=== PATIENT | female | born 1980 | race African-American/Black ===

== ENCOUNTER 2017-08-21 12:41 | Emergency (ER) | payer MEDICAID, SELFPAY ==
[2017-08-21 12:43] VITALS: BP 137/91; PULSE 71; RESP 16; TEMP 37; O2SAT 100; BMI 44.2
--- NOTE | 2017-08-21 13:12 | ED.DCSUM_ITS ---
- ER Visit Summary Date of Service: 08/21/17 Chief Complaint: Right flank pain History of Present Illness: The patient is a 37 F with waxing and waning right flank pain for the past week. She states she did have one episode of vomiting last week. No diarrhea. She denies urinary symptoms. She initially thought was secondary to uterine cramping. She had uterine ablation in the past but states she still gets cramps monthly. Physical Examination: Vital signs are unremarkable. Patient sitting upright in bed no acute distress. She is nontoxic appearing. Head and neck examination unremarkable. Heart is regular rate and rhythm. Lung sounds are clear. Abdomen is soft with no reproducible tenderness. Hypoactive bowel sounds noted throughout. Back examination reveals no true CVA tenderness. Test Results: CBC and chemistry studies are unremarkable. Urinalysis shows 15 ketones but no blood or infection. CT flank shows mild to moderate constipation. There is no evidence of appendicitis. There is a 3.7 mm lower pole renal stone on the right. Emergency Department Course and Treatment: Patient did take ibuprofen couple hours prior to arrival. After finding a ride home she was given dose of morphine and Zofran along with IV fluids. Test results were discussed with the patient. She will be started on MiraLAX. Treatment Plan: [] Disposition: Discharge Impression: 1. Right flank pain 2. Constipation This note was generated with [employer] dictation software. It may contain incorrect words, spelling, and punctuation that were not noted in review of the chart prior to signing ED Disposition - Plan for ED Patient: Chief Complaint: Flank Pain Referrals: [facility] Doctor,Out of [NON-STAFF] -
[2017-08-21] MEDS: 0.9% Normal Saline 1,000 ML 150 ML IV (13:19)
[2017-08-21 13:27] LABS: Mucous, Urine 0 SEEN /hpf (<or=2+); Squamous Epithelial Cells - UA 0 SEEN /hpf (5-10); White Blood Cells 0 SEEN /hpf (0-5)
[2017-08-21 13:30] LABS: Absolute Lymphocyte Count 1.97 X10^3/ul (0.83-4.51); Absolute Neutrophil Count 2.5 X10^3/uL (2.0-7.7); Basophil# 0.02 X10^3/uL; Basophil% 0.4 % (0-1); Eosinophil# 0.09 X10^3/uL; Eosinophils% 1.8 % (0-5); Hematocrit 41.4 % (37-47); Hemoglobin 13.9 g/dl (12.0-15.0); Lymphocyte # 1.97 X10^3/ul (4.0); Lymphocyte % 39.2 % (19-41); Mean Corp Hgb Conc 33.6 g/gl (32-36); Mean Corpuscular Hgb 29.3 pg (27.0-32.0); Mean Corpuscular Volume 87.3 fL (81-99); Mean Platelet Vol. 10.2 fl (6.2-12.0); Monocyte# 0.42 X10^3/uL; Monocyte% 8.3 % (0-10); Neutrophil # 2.52 X10^3/uL (2.7-7.7); Neutrophil % 50.1 % (47-70); Platelet Count 248 K/mm3 (150-450); RBC Distribution Width CV 11.9 % (11.6-14.6); Red Blood Count 4.74 M/mm3 (4.2-5.4)
[2017-08-21 13:33] LABS: POSITIVE COUNT NO; POSITIVE DIFFERENTIAL NO; POSITIVE MORPHOLOGY NO
[2017-08-21 13:35] LABS: Color, Urine Yellow (Yellow); Glucose, Dipstick Normal (Normal); Ketone-Dipstick 15 mg/dl (Negative); Leukocyte Esterase-Dipstick Negative /ul (Negative); Nitrite-Dipstick Negative (Negative); Occult Blood-Urine Negative /ul (Negative); Protein-Dipstick Negative (Negative); Urine Bilirubin Dipstick Negative (Negative); Urine Clarity Clear (Clear); Urine Urobilinogen Normal (Normal)
--- NOTE | 2017-08-21 13:40 | NURSING ---
NO LW OR POA
[2017-08-21 13:45] LABS: Bacteria RARE /hpf (None Seen); Red Blood Cells-Urine 0-5 SEEN /hpf (0-5)
[2017-08-21 13:49] LABS: Anion Gap 9 (5-15); BUN 14 mg/dL (7-18); BUN/Creat Ratio 13.6 RATIO (10-20); Calcium,Total 8.9 mg/dL (8.5-10.1); Chloride 106 mmol/L (98-107); Creatinine, Serum 1.03 mg/dL (0.55-1.02); EST Glomerular Filtration Rate 64 mL/min (>60); Est Glom Filt Rate - Afr Amer 78 mL/min (>60); Estimated Creatinine Clearance 75.44 ml/min; Glucose 87 mg/dL (74-106); Sodium Level 140 mmol/L (136-145)
--- NOTE | 2017-08-21 13:51 | CT_ITS ---
STUDY: CT ABDOMEN AND PELVIS WITHOUT CONTRAST REASON FOR EXAM: Female, 37 years old. Right side pain prior uterine ablation cholecystectomy RADIATION DOSAGE (If Supplied By Facility): CTDIvol = ( 22.99 ) mGy, DLP = ( 1183.37 ) mGycm TECHNIQUE: Transaxial images were obtained from the dome of the diaphragm to the symphysis pubis without oral contrast, and without intravenous contrast. Sagittal and coronal images were reconstructed. Individualized dose optimization techniques were used for this CT. COMPARISON: None. FINDINGS: The visualized lung bases are unremarkable. The visualized portions of the heart are within normal limits. The liver is mildly enlarged and inhomogeneous especially within the right hepatic lobe align for any artifact. CT image #26 axial views. There is non-visualization of the gallbladder, which may be secondary to either contraction or a prior cholecystectomy. Normal spleen. Normal pancreas. Normal bilateral adrenal glands. There is a lower pole right renal stone measuring 3.7 mm. There is no visualized hydronephrosis. Normal left kidney. Normal visualized stomach. Normal small intestine. There is moderate stool in the colon. The appendix is visualized and appears normal. Well-seen image #116 axial views without evidence of inflammation. Normal abdominal aorta. Normal inferior vena cava. Normal retroperitoneum. Normal urinary bladder. There is a midline retroflexed uterus with mild prominence of the lower uterine segment. Normal abdominal wall. There are mild degenerative changes of the visualized lumbar spine. CT/Abdomen/Pelvis without Cont IMPRESSION: Mild to moderate constipation. No visualized appendicitis. 3.7 mm lower pole right renal stone without evidence of hydronephrosis. Inhomogeneity of the liver which may represent fatty infiltration with sparing recommend correlation with laboratory values. Status post cholecystectomy. Nonspecific mild noncontrast prominence of the lower uterine segment could consider follow-up pelvic ultrasound. Electronically Signed: Rocio Mason MD at 15:09 EDT Tel , Service support ,
[2017-08-21] MEDS: Morphine 4 MG/ML Syringe IV (14:40)
[2017-08-21] MEDS: Ondansetron 4 MG/2 ML Vial IV (14:40)
[2017-08-21 15:21] VITALS: BP 126/74; PULSE 63; RESP 18; O2SAT 96
--- NOTE | 2017-08-21 15:38 | DCINST.ED_ITS ---
ED Disposition - Plan for ED Patient: Disposition: Home or Assisted Living Chief Complaint: Flank Pain Instructions: ED Flank Pain Uncertain Cause, ED Constipation Prescriptions: Polyethylene Glycol 3350 [Miralax] 17 gm PO DAILY #30 packet Referrals: [facility] Doctor,Out of [NON-STAFF] -
[2017-08-21 15:47] VITALS: PULSE 64; RESP 18; O2SAT 100
== END 2017-08-21 15:48 | disposition home or self-care (01) ==
PROVIDERS: Emergency Provider Emergency Medicine
DX: K59.00 Constipation, unspecified (principal); N20.0 Calculus of kidney
CPT/HCPCS: 74176; 80048; 81001; 85025; 96361; 96374; 96375; 99283; J7030; A4216; J2405

== ENCOUNTER 2017-12-26 13:07 | Emergency (ER) | payer MEDICAID, SELFPAY ==
[2017-12-26 13:08] VITALS: BP 138/80; PULSE 81; RESP 16; TEMP 36.6; O2SAT 97; BMI 45.6
--- NOTE | 2017-12-26 13:37 | RAD_ITS ---
STUDY: X-RAY CHEST REASON FOR EXAM: Female, 37 years old. Right-sided chest pain TECHNIQUE: Single AP portable view of the chest. COMPARISON: None. FINDINGS: There are monitoring devices. The lungs are clear and expanded. There is no demonstrated pleural abnormality. Normal size heart. Normal mediastinum and sonya. Normal visualized pulmonary arteries. Normal visualized aortic arch and descending thoracic aorta. Normal visualized thoracic spine. Normal visualized ribs, clavicles, and shoulders. There is no demonstrated abnormality of the visualized soft tissue structures of the upper abdomen. RAD/Chest 1 View (Portable) IMPRESSION: Normal x-ray examination of the chest. Electronically Signed: Pablo Horne MD at 15:02 EST , Service support ,
--- NOTE | 2017-12-26 13:37 | EKG12_ITS ---
Test Reason : CP Blood Pressure : / mmHG Vent. Rate : 076 BPM Atrial Rate : 076 BPM P-R Int : 166 ms QRS Dur : 092 ms QT Int : 378 ms P-R-T Axes : 048 -12 012 degrees QTc Int : 425 ms Normal sinus rhythm Minimal voltage criteria for LVH, may be normal variant Borderline ECG Confirmed by YVETTE TEMPLE, CYNTHIA ([id number]), manuscript editor ALEKSANDRA RINCON ([id number] on 12/29/2017 3:55:42 PM Referred By: SAGRARIO Confirmed By:CYNTHIA CRAWFORD MD
[2017-12-26] MEDS: 0.9% Normal Saline 1,000 ML 150 ML IV (13:50)
[2017-12-26] MEDS: Aspirin 81 MG TAB.CHEW 324 MG PO (13:54)
[2017-12-26 14:00] LABS: Absolute Lymphocyte Count 1.55 X10^3/ul (0.83-4.51); Absolute Neutrophil Count 2.8 X10^3/uL (2.0-7.7); Basophil# 0.03 X10^3/uL; Basophil% 0.6 % (0-1); Hematocrit 41.9 % (37-47); Hemoglobin 13.9 g/dl (12.0-15.0); Lymphocyte # 1.55 X10^3/ul (4.0); Lymphocyte % 31.5 % (19-41); Mean Corp Hgb Conc 33.2 g/gl (32-36); Mean Corpuscular Hgb 29.3 pg (27.0-32.0); Mean Corpuscular Volume 88.2 fL (81-99); Mean Platelet Vol. 10.3 fl (6.2-12.0); Monocyte# 0.43 X10^3/uL; Monocyte% 8.7 % (0-10); Neutrophil # 2.81 X10^3/uL (2.7-7.7); Neutrophil % 57.2 % (47-70); Platelet Count 239 K/mm3 (150-450); RBC Distribution Width CV 12.3 % (11.6-14.6); RBC Distribution Width SD 39.1 fl (35.1-43.9); Red Blood Count 4.75 M/mm3 (4.2-5.4); White Blood Count 4.9 K/mm3 (4.4-11.0)
[2017-12-26 14:02] LABS: POSITIVE COUNT NO; POSITIVE DIFFERENTIAL NO; POSITIVE MORPHOLOGY NO
[2017-12-26 14:17] LABS: Anion Gap 5 (5-15); BUN 11 mg/dL (7-18); BUN/Creat Ratio 13.7 RATIO (10-20); Calcium,Total 8.6 mg/dL (8.5-10.1); Chloride 106 mmol/L (98-107); EST Glomerular Filtration Rate 85 mL/min (>60); Est Glom Filt Rate - Afr Amer 103 mL/min (>60); Estimated Creatinine Clearance 86.64 ml/min; Glucose 91 mg/dL (74-106); Potassium 3.7 mmol/L (3.5-5.1); Sodium Level 139 mmol/L (136-145)
[2017-12-26 14:38] LABS: AST(SGOT) 16 U/L (15-37); Alanine Aminotransfer ALT/SGPT 30 U/L (13-56); Albumin, Serum 3.7 g/dL (3.2-5.0); Alkaline Phosphatase 47 U/L (45-117); Bilirubin, Direct 0.19 mg/dL (0.00-0.30); Globulin 3.8 g/dL (2.2-4.2); Lipase 62 U/L (73-393); Protein, Total 7.5 g/dL (6.4-8.2)
[2017-12-26] MEDS: Mag Hydrox/Al Hydrox/Simeth 30 ML UDC PO (14:39)
[2017-12-26 14:43] LABS: D-Dimer Quantitative (DVT/PE) < 0.27 FEU/ug/m (0.27-0.49)
--- NOTE | 2017-12-26 14:52 | ED.VISSUMM ---
- ER Visit Summary Date of Service: 12/26/17 Chief Complaint: [] Epigastric pain now chest pain History of Present Illness: The patient is a 37 F [] patient reports for 2 or 3 days in a constant fashion she has had a vague epigastric discomfort that now radiates to her chest. She has a history of reflux she has had this in the past it has not gone away nothing really makes it better or worse the epigastric discomfort has resolved but she has a persistent sense of nonspecific chest discomfort. The chest discomfort is not really new for her she has had in the past and has had prior workup has been negative. She indicates she did have an EGD that showed reflux she has been taking medications for that in the past. She has had no fever no cough no numbness weakness paresthesias She has no history of WA PE or DVT her bowel bladder habits have been normal clinically she is resting comforting the bed no distress Indicates the pain is actually in the BN type fashion around the right parasternal region of her breast but this area is not tender to palpation Physical Examination: [] Her blood pressure is 130/80 the rest are unremarkable she is in no distress head neck unremarkable the lungs are clear the heart tones are normal she points to the epigastric area indicate the pain began there then would shoot pain up into her chest the abdomen soft nontender now as is the chest wall, the upper lower extremities unremarkable pulses are symmetric neurologically she is awake alert moving all 4 Test Results: [] Emergency Department Course and Treatment: [] At this time given her complaints and her age EKG shows a sinus rhythm nothing acute screening labs will be obtained troponin etc. The patient's labs are all generally unremarkable for her as is the chest x-ray see those reports, on reevaluation she is resting comfortably we discussed inpatient versus outpatient management she does not wish to be admitted she prefers outpatient management she understands need for close outpatient follow-up, she recently apparently stopped using her antiacid medication I recommended she resume that follow-up with her physicians and return for change in symptoms and she will do so Treatment Plan: [] Disposition: [] Home stable Impression: [] Epigastric burning pain improved This note was generated with [employer] software. It may contain incorrect words, spelling, and punctuation that were not noted in review of the chart prior to signing ED Disposition - Plan for ED Patient: Chief Complaint: Chest Pain Referrals: [facility] Doctor,Out of [Primary Care Provider] -
[2017-12-26 15:13] LABS: Pregnancy, Serum, hCG Quali. NEGATIVE Negative (0-9 Nonpreg)
[2017-12-26 15:43] VITALS: BP 143/96; PULSE 68; RESP 20; O2SAT 100
--- NOTE | 2017-12-26 16:14 | DCINST.ED_ITS ---
ED Disposition - Plan for ED Patient: Chief Complaint: Chest Pain Instructions: ED Chest Pain Atypical Unkn Cause Referrals: [facility] Doctor,Out of [Primary Care Provider] - Additional Instructions: Follow-up with your doctor return for change in symptoms please resume taking your antiacid medicine
[2017-12-26 16:35] VITALS: BP 132/97; PULSE 67; RESP 17; O2SAT 97
--- NOTE | 2017-12-26 16:36 | ED.RN ---
IV DC'ED, CATHETER INTACT, SMALL GAUZE DRESSING PLACED. DISCHARGE INSTRUCTIONS GIVEN TO AND REVIEWED WITH PATIENT, PATIENT DENIES QUESTIONS OR CONCERNS AND VOICES UNDERSTANDING OF DISCHARGE INSTRUCTIONS. PT AMBULATES OUT OF ROOM WITHOUT DIFFICULTY.
== END 2017-12-26 16:37 | disposition home or self-care (01) ==
LOC: ED 14:38
PROVIDERS: Emergency Provider Emergency Medicine
DX: R10.13 Epigastric pain (principal); R07.89 Other chest pain
CPT/HCPCS: 71045; 80048; 80076; 83690; 84484; 84703; 85025; 85379; 93005; 96360; 99285; J7030

== ENCOUNTER → 2020-09-20 16:19 | Outpatient (CLI) | payer MEDICAID, SELFPAY ==
[2020-09-24 14:08] LABS: Banana <0.10 kU/L (Class 0); Peach <0.10 kU/L (Class 0); Turkey <0.10 kU/L (Class 0)
[2020-09-24 15:51] LABS: Apple <0.10 kU/L (Class 0); Ragweed, False <0.10 kU/L (Class 0)
[2020-09-24 16:08] LABS: Almond <0.10 kU/L (Class 0); Barley, Whole Grain <0.10 kU/L (Class 0); Beef <0.10 kU/L (Class 0); Brazil Nut <0.10 kU/L (Class 0); Carrot <0.10 kU/L (Class 0); Cashew <0.10 kU/L (Class 0); Cat Hair / Dander,Stand <0.10 kU/L (Class 0); Chicken <0.10 kU/L (Class 0); Clam 0.48 kU/L (Class I); Codfish <0.10 kU/L (Class 0); Crab <0.10 kU/L (Class 0); Dog Epithelia 1.03 kU/L (Class II); Egg, White <0.10 kU/L (Class 0); Egg, Whole <0.10 kU/L (Class 0); Egg, Yolk <0.10 kU/L (Class 0); Garlic <0.10 kU/L (Class 0); Gluten <0.10 kU/L (Class 0); Hazelnut/Filbert <0.10 kU/L (Class 0); Lobster <0.10 kU/L (Class 0); Milk (Cow) <0.10 kU/L (Class 0); Oat <0.10 kU/L (Class 0); Orange <0.10 kU/L (Class 0); Pea <0.10 kU/L (Class 0); Pecan <0.10 kU/L (Class 0); Pork <0.10 kU/L (Class 0); Potato, White <0.10 kU/L (Class 0); Ragweed, Short/Common <0.10 kU/L (Class 0); Rice <0.10 kU/L (Class 0); SESAME SEED <0.10 kU/L (Class 0); Salmon <0.10 kU/L (Class 0); Shrimp <0.10 kU/L (Class 0); Soybean <0.10 kU/L (Class 0); Strawberry <0.10 kU/L (Class 0); Tomato <0.10 kU/L (Class 0); Tuna <0.10 kU/L (Class 0); Walnut, (Food) <0.10 kU/L (Class 0); Wheat <0.10 kU/L (Class 0); Yeast 1.83 kU/L (Class III)
[2020-09-24 16:27] LABS: Onion <0.10 kU/L (Class 0); Peanut <0.10 kU/L (Class 0)
== END ==
LOC: LABSPEC 16:29 → LAB 09-21 06:09
PROVIDERS: PCP Registered Nurse; Referring Provider Otolaryngology Otolaryngology/Facial Plastic Surgery; Visit Provider Otolaryngology Otolaryngology/Facial Plastic Surgery
DX: T78.40XA Allergy, unspecified, initial encounter (principal)
CPT/HCPCS: 36415; 86003

== ENCOUNTER 2020-10-25 15:00 | Outpatient (RCR) | payer MEDICAID, SELFPAY | END 2020-10-25 23:59 | disposition home or self-care (01) | LOC: NS 15:00 | PROVIDERS: PCP Registered Nurse; Visit Provider Otolaryngology Otolaryngology/Facial Plastic Surgery | DX: Z91.018 Allergy to other foods (principal) | CPT/HCPCS: 97802 ==

== ENCOUNTER → 2023-12-01 | Outpatient (CLI) | payer OTHER, SELFPAY ==
[2023-12-08 09:09] LABS: QNTFERON TB Mitogen Value > 10.00 IU/mL (.); QNTFERON TB Nil Value 0.05 IU/mL (.); QNTFERON TB1+ Ag Value 0.05 IU/mL (.); QNTFERON TB2+ Ag Value 0.05 IU/mL (.); QNTIFERON TB Positive Criteria Negative (Negative)
== END | disposition home or self-care (01) ==
LOC: MTLAB 16:39
PROVIDERS: PCP Registered Nurse; Referring Provider Physician Assistant Medical; Visit Provider Physician Assistant Medical
DX: L40.0 Psoriasis vulgaris (principal); Z79.899 Other long term (current) drug therapy
CPT/HCPCS: 36415; 86480